=== PATIENT | male | born 1975 | race Caucasian/White ===

== ENCOUNTER 2017-04-18 06:26 | Emergency (ER) | payer OTHER ==
[~2017-04-18] VITALS: Ht 180.3 cm; Wt 83.7 kg
[~2017-04-18 06:26] MED LIST: ULTRAM50 MG PO
[2017-04-18 08:04] LABS: HEMATOCRIT 44.7 % (38.0-50.0); HEMOGLOBIN 15.7 G/DL (12.5-16.6); MCH 32.6 PG (29.0-34.0); MCHC 35.1 G/DL (30.0-36.0); MCV 92.9 FL (86-99); PLATELET COUNT 209 K/uL (156-360); RBC DIS.WIDTH-CV 12.8 % (11.8-14.6); RBC DIS.WIDTH-SD 43.9 % (39-53); RED BLOOD COUNT 4.81 M/uL (4.00-5.50); WHITE BLOOD COUNT 10.2 K/uL (4.1-10.2)
[2017-04-18 08:24] LABS: TROP-I INTERPRETATION NEGATIVE; TROPONIN-I < 0.01 ng/mL (0.0-0.30)
[2017-04-18 08:26] LABS: CHLORIDE 105 mEq/L (99-109); POTASSIUM 4.2 mEq/L (3.7-5.4); SODIUM 140 mEq/L (136-147)
[2017-04-18 08:28] LABS: GLUCOSE 92 mg/dL (70-99)
[2017-04-18 08:32] LABS: CREATININE 0.9 mg/dL (0.6-1.3); GFR ESTIMATE (CALCULATED) > 59 mL/min/ (58.99-99999)
[2017-04-18 08:33] LABS: UREA NITROGEN (BUN) 13 mg/dL (9-23)
[2017-04-18 10:55] LABS: D-DIMER ELISA < 150.00 ng/mLDDU (<230)
[2017-04-18] MEDS ORDERED: MOTRIN800 MG PO (12:06)
[2017-04-18 12:18] VITALS: BP 119/83
== END 2017-04-18 12:19 | disposition home or self-care (01) ==
LOC: EME 06:26
DX: R09.1 Pleurisy (principal); R07.89 Other chest pain; F17.200 Nicotine dependence, unspecified, uncomplicated; J45.909 Unspecified asthma, uncomplicated; R56.9 Unspecified convulsions; I34.1 Nonrheumatic mitral (valve) prolapse; Z88.0 Allergy status to penicillin
CPT/HCPCS: 71046; 80048; 84484; 85027; 85379; 93005; 99281; 99284